=== PATIENT | male | born 1950 | race Hispanic/Latino ===

== ENCOUNTER 2019-07-20 19:45 | Inpatient (IN) | payer OTHER, MEDICARE ==
[2019-07-20] MEDS ORDERED: PANTOPRAZOLE 40 MG INJ IV ONE (20:22)
[2019-07-20 21:36] LABS: Basophils % (Auto) 0.5 % (0.0-1.8); Eosinophils # (Auto) 0.1 K/mm3 (0.0-0.4); Eosinophils % (Auto) 1.6 % (0.0-4.3); Hematocrit 41.7 % (35.5-45.6); Hemoglobin 14.1 gm/dl (11.8-15.2); Lymphocytes # (Auto) 1.1 K/mm3 (1.2-5.4); Lymphocytes % (Auto) 15.8 % (13.4-35.0); Mean Corpuscular HGB Conc 34 % (32-34); Mean Corpuscular Volume 97 fl (84-94); Monocytes # (Auto) 0.5 K/mm3 (0.0-0.8); Monocytes % (Auto) 7.1 % (0.0-7.3); Platelet Count 174 K/mm3 (140-440); Red Cell Distribution Width 13.8 % (13.2-15.2)
--- NOTE | 2019-07-20 21:40 | Emergency Department Report ---
HPI - General Chief Complaint: GI Bleed Time Seen by Provider: 07/20/19 20:20 - HPI HPI: 68-year-old male presents to the emergency department from home with the complaint of rectal bleeding that started around 4:00 this afternoon. By about 7:30 PM the patient had passed about 300 to 400 mL's of blood with some clots and then had a witnessed syncopal episode per family. Patient has a history of bleeding ulcers from about 6 years ago, hypertension, high cholesterol. Patient had a colonoscopy done about 5 days ago with [facility] in [place]. He says that he had 5 different polyps removed at that time. He denies any fever, nausea, vomiting, abdominal pain. He has not taken anything for his symptoms prior to presentation. His primary care physician is Dr. Penny Flores. ED Past Medical Hx - Past Medical History Hx Hypertension: Yes Additional medical history: bleeding ulcers, high choletserol - Surgical History Past Surgical History?: No - Social History Smoking Status: Current Every Day Smoker Substance Use Type: Alcohol - Medications Home Medications: Home Medications Medication Instructions Recorded Confirmed Last Taken Type AtorvaSTATin [Lipitor] 20 mg PO QHS 07/20/19 07/20/19 07/19/19 History Benazepril HCl [Lotensin] 20 mg PO DAILY 07/20/19 07/20/19 07/20/19 History ED Review of Systems ROS: Stated complaint: LOWER GI BLEED Other details as noted in HPI Comment: All other systems reviewed and negative Constitutional: denies: chills, fever Eyes: denies: eye pain, vision change ENT: denies: ear pain, throat pain Respiratory: denies: cough, shortness of breath Cardiovascular: syncope. denies: chest pain, palpitations Gastrointestinal: other (rectal bleeding). denies: nausea, vomiting Genitourinary: denies: dysuria, discharge Musculoskeletal: denies: back pain, arthralgia Skin: denies: rash, lesions Neurological: denies: headache, weakness Physical Exam - Physical Exam Vital Signs: Vital Signs 07/20/19 07/20/19 07/20/19 19:45 20:01 20:57 Temperature 97.6 F Pulse Rate 88 83 82 Respiratory 16 14 16 Rate Blood Pressure 104/73 Blood Pressure 113/76 123/63 [Left] O2 Sat by Pulse 97 100 99 Oximetry Physical Exam: GENERAL: The patient is well-developed well-nourished. HENT: Normocephalic. Atraumatic. Patient has moist mucous membranes. EYES: Extraocular motions are intact. NECK: Supple. Trachea is midline. CHEST/LUNGS: Clear to auscultation. There is no respiratory distress noted. HEART/CARDIOVASCULAR: Regular. There is no tachycardia. There is no murmur. ABDOMEN: Abdomen is soft, nontender. Patient has normal bowel sounds. There is no abdominal distention. SKIN: Skin is warm and dry. NEURO: The patient is awake, alert, and oriented. The patient is cooperative. The patient has no focal neurologic deficits. Normal speech. Cranial nerves II through XII grossly intact. MUSCULOSKELETAL: There is no tenderness or deformity. There is no evidence of acute injury. RECTAL: There is a mild amount of gross blood seen but no active hemorrhage. Nonthrombosed hemorrhoid at the 6 o'clock position. ED Course Vital Signs 07/20/19 07/20/19 07/20/19 19:45 20:01 20:57 Temperature 97.6 F Pulse Rate 88 83 82 Respiratory 16 14 16 Rate Blood Pressure 104/73 Blood Pressure 113/76 123/63 [Left] O2 Sat by Pulse 97 100 99 Oximetry - Consultations Consultation #1: I spoke with the graphic user interface designer on-call, Dr. Crowe, regarding the patient's recent colonoscopy and polypectomy, along with the patient's GI bleeding today. Dr. Crowe has recommended the patient be admitted for an observational stay and they are happy to consult. 07/21/19 00:11 ED Medical Decision Making - Lab Data Result diagrams: 07/20/19 21:00 07/20/19 21:00 - EKG Data -: EKG Interpreted by Me EKG shows normal: sinus rhythm, axis, intervals, QRS complexes, ST-T waves Rate: normal - EKG Data When compared to previous EKG there are: previous EKG unavailable Interpretation: normal EKG - Radiology Data Radiology results: image reviewed interpreted by me: Abdominal x-ray shows nonspecific nonobstructive bowel gas. - Medical Decision Making This patient presents to the emergency department after having a moderate amount of gross rectal bleeding earlier in the day followed by some type of syncope or near syncopal episode. Since being in the emergency department the patient is awake, alert, oriented and in no acute distress. Patient's labs are unremarkable including a hemoglobin of about 14. Rectal examination shows a nonthrombosed hemorrhoid and some mild gross blood without any active hemorrhage. GI was contacted and recommended observational admission and they will consult. Patient accepted for admission by the hospitalist, Dr. Da Silva. - Differential Diagnosis Hemorrhoids, post polypectomy bleed, malignancy, diverticulosis Critical Care Time: No Critical care attestation.: If time is entered above; I have spent that time in minutes in the direct care of this critically ill patient, excluding procedure time. ED Disposition Clinical Impression: Post-polypectomy bleeding GI bleed Qualifiers: GI bleed type/associated pathology: unspecified gastrointestinal hemorrhage type Qualified Code(s): K92.2 - Gastrointestinal hemorrhage, unspecified Syncope Qualifiers: Syncope type: unspecified Qualified Code(s): R55 - Syncope and collapse Disposition: DC-09 OP ADMIT IP TO THIS HOSP Is pt being admited?: Yes Condition: Fair Time of Disposition: 23:40
[2019-07-20 21:44] LABS: INR 1.05 (0.87-1.13)
[2019-07-20 21:53] LABS: Partial Thromboplastin Time 25.7 Sec. (24.2-36.6)
[2019-07-20 21:54] LABS: Alanine Aminotransferase 38 units/L (7-56); Albumin 3.9 g/dL (3.9-5); BUN/Creatinine Ratio 17; Blood Urea Nitrogen 17 mg/dL (9-20); Calcium 8.7 mg/dL (8.4-10.2); Hemolysis Index 7
--- NOTE | 2019-07-20 23:01 | XRay Report ---
ABDOMEN 2 VIEW(S) INDICATION / CLINICAL INFORMATION: abd pain. COMPARISON: None available. FINDINGS: TUBES / LINES: None. BOWEL GAS PATTERN: No significant abnormality. FREE AIR / EXTRALUMINAL GAS: None seen. ADDITIONAL FINDINGS: No significant additional findings. IMPRESSION: 1. No significant abnormality. Signer Name: Jose Steve MD Signed: 07/20/2019 10:57 PM Workstation Name: [id number]
[2019-07-20] MEDS ORDERED: SODIUM CHLORIDE 0.9% 1000 ML 1,000 ML IV ONE (23:41)
[2019-07-21] MEDS ORDERED: ACETAMINOPHEN 325 MG TAB PO PRN (04:41)
[2019-07-21] MEDS ORDERED: HYDROmorphone 1 MG/1 ML INJ IV PRN (04:41)
[2019-07-21] MEDS ORDERED: ONDANSETRON 4 MG/2 ML INJ IV PRN (04:41)
[2019-07-21] MEDS ORDERED: ALBUTEROL 2.5 MG/3 ML NEBU IH PRN (04:41)
[2019-07-21] MEDS ORDERED: MORPHINE 2 MG/1 ML INJ IV PRN (04:41)
[2019-07-21] MEDS ORDERED: D5W/LACTATED RINGERS 1,000 ML IV SCH (05:00)
--- NOTE | 2019-07-21 05:03 | History and Physical Report ---
History of Present Illness Date of admission: 07/20/19 23:40 Chief complaint: Rectal bleeding History of present illness: 68-year-old male with PMH of PUD, HTN with polypectomy 5 days ago presents to the Emergency Department from home with the c/o rectal bleeding that started around 4:00 this afternoon. About three and a half hours later the patient had passed about 300 to 400 mL's of blood with some clots and then had a witnessed syncopal episode per family. Patient has a history of bleeding ulcers from about 6 years ago, hypertension, high cholesterol. Patient had a colonoscopy done about 5 days ago with [facility] in [place]. He says that he had 5 different polyps removed at that time. He admits to having hemmorroids, which tend to bleed somewhat frequently. Today, he also felt dizzy and felt like almost fainting. In the ED, Hgb was WNL. GI, Dr Crowe was notified in the ED and he accepted the consult. He denies any fever, nausea, vomiting,hematuria, hematemesis, epitaxis, abdominal pain. He has not taken anything for his symptoms prior to pre sentation to the ED.. His primary care physician is Dr. Penny Flores. Medications and Allergies Allergies Allergy/AdvReac Type Severity Reaction Status Date / Time No Known Allergies Allergy Verified 07/21/19 04:54 Home Medications Medication Instructions Recorded Confirmed Last Taken Type AtorvaSTATin [Lipitor] 20 mg PO QHS 07/20/19 07/20/19 07/19/19 History Benazepril HCl [Lotensin] 20 mg PO DAILY 07/20/19 07/20/19 07/20/19 History Active Meds: Active Medications Acetaminophen (Tylenol) 650 mg PO Q4H PRN PRN Reason: Pain MILD(1-3)/Fever >100.5/LUND Albuterol (Proventil) 2.5 mg IH Q4HRT PRN PRN Reason: Shortness Of Breath Atorvastatin Calcium (Lipitor) 20 mg PO QHS MARY Hydromorphone HCl (Dilaudid) 0.25 mg IV Q3H PRN PRN Reason: Pain, Moderate (4-6) Sodium Chloride (Nacl 0.9% 1000 Ml) 1,000 mls @ 125 mls/hr IV ONCE ONE Stop: 07/21/19 07:40 Last Admin: 07/21/19 02:08 Dose: 125 mls/hr Documented by: Dextrose/Lactated Ringer's ([email or web address]) 1,000 mls @ 125 mls/hr IV DIRECT MARY Stop: 07/21/19 06:59 Miscellaneous Medication (Benazepril Hcl [Lotensin]) 20 mg PO DAILY [facility] Morphine Sulfate (Morphine) 2 mg IV Q4H PRN PRN Reason: Pain, Moderate (4-6) Ondansetron HCl (Zofran) 4 mg IV Q8H PRN PRN Reason: Nausea And Vomiting Sodium Chloride (Sodium Chloride Flush Syringe 10 Ml) 10 ml IV BID MARY Sodium Chloride (Sodium Chloride Flush Syringe 10 Ml) 10 ml IV PRN PRN PRN Reason: LINE FLUSH Review of Systems All systems: negative Exam - Constitutional Vitals: Temp Pulse Resp BP Pulse Ox 97.8 F 85 18 135/71 97 07/21/19 01:12 07/21/19 01:12 07/21/19 01:12 07/21/19 01:12 07/21/19 01:12 General appearance: Present: no acute distress, well-nourished - EENT Eyes: Present: PERRL ENT: hearing intact, clear oral mucosa - Neck Neck: Present: supple, normal ROM - Respiratory Respiratory effort: normal Respiratory: bilateral: CTA - Cardiovascular Heart Sounds: Present: S1 & S2. Absent: rub, click - Extremities Extremities: pulses symmetrical, No edema Peripheral Pulses: within normal limits - Abdominal General gastrointestinal: Present: soft, non-tender, non-distended, normal bowel sounds Male genitourinary: Present: normal - Rectal Rectal Exam: hemorrhoids, stool brown - Integumentary Integumentary: Present: clear, warm, dry - Musculoskeletal Musculoskeletal: gait normal, strength equal bilaterally - Psychiatric Psychiatric: appropriate mood/affect, intact judgment & insight - Neurologic Neurologic: CNII-XII intact, moves all extremities Results - Labs CBC & Chem 7: 07/20/19 21:00 07/20/19 21:00 Labs: Laboratory Last Values WBC 6.9 K/mm3 (4.5-11.0) 07/20/19 21:00 RBC 4.30 M/mm3 (3.65-5.03) 07/20/19 21:00 Hgb 14.1 gm/dl (11.8-15.2) 07/20/19 21:00 Hct 41.7 % (35.5-45.6) 07/20/19 21:00 MCV 97 fl (84-94) H 07/20/19 21:00 MCH 33 pg (28-32) H 07/20/19 21:00 MCHC 34 % (32-34) 07/20/19 21:00 RDW 13.8 % (13.2-15.2) 07/20/19 21:00 Plt Count 174 K/mm3 (140-440) 07/20/19 21:00 Lymph % (Auto) 15.8 % (13.4-35.0) 07/20/19 21:00 [place] % (Auto) 7.1 % (0.0-7.3) 07/20/19 21:00 Eos % (Auto) 1.6 % (0.0-4.3) 07/20/19 21:00 Baso % (Auto) 0.5 % (0.0-1.8) 07/20/19 21:00 Lymph # 1.1 K/mm3 (1.2-5.4) L 07/20/19 21:00 [place] # 0.5 K/mm3 (0.0-0.8) 07/20/19 21:00 Eos # 0.1 K/mm3 (0.0-0.4) 07/20/19 21:00 Baso # 0.0 K/mm3 (0.0-0.1) 07/20/19 21:00 Seg Neutrophils % 75.0 % (40.0-70.0) H 07/20/19 21:00 Seg Neutrophils # 5.1 K/mm3 (1.8-7.7) 07/20/19 21:00 PT 13.8 Sec. (12.2-14.9) 07/20/19 21:00 INR 1.05 (0.87-1.13) 07/20/19 21:00 APTT 25.7 Sec. (24.2-36.6) 07/20/19 21:00 Sodium 140 mmol/L (137-145) 07/20/19 21:00 Potassium 3.8 mmol/L (3.6-5.0) 07/20/19 21:00 Chloride 103.9 mmol/L (98-107) 07/20/19 21:00 Carbon Dioxide 20 mmol/L (22-30) L 07/20/19 21:00 Anion Gap 20 mmol/L 07/20/19 21:00 BUN 17 mg/dL (9-20) 07/20/19 21:00 Creatinine 1.0 mg/dL (0.8-1.5) 07/20/19 21:00 Estimated GFR > 60 ml/min 07/20/19 21:00 BUN/Creatinine Ratio 17 % 07/20/19 21:00 Glucose 124 mg/dL (75-100) H 07/20/19 21:00 Calcium 8.7 mg/dL (8.4-10.2) 07/20/19 21:00 Total Bilirubin 0.70 mg/dL (0.1-1.2) 07/20/19 21:00 AST 36 units/L (5-40) 07/20/19 21:00 ALT 38 units/L (7-56) 07/20/19 21:00 Alkaline Phosphatase 55 units/L (35-129) 07/20/19 21:00 Troponin T < 0.010 ng/mL (0.00-0.029) 07/20/19 21:00 Total Protein 6.2 g/dL (6.3-8.2) L 07/20/19 21:00 Albumin 3.9 g/dL (3.9-5) 07/20/19 21:00 Albumin/Globulin Ratio 1.7 % 07/20/19 21:00 TSH 1.070 mlU/mL (0.270-4.200) 07/20/19 23:01 Blood Type A POSITIVE 07/20/19 21:10 Antibody Screen Negative 07/20/19 21:10 Assessment and Plan Assessment and plan: Lower GI bleeding - post polypectomy bleeding - Possible with concomitant hemmoroidal bleeding - Coags are WNL. Pt is not on any blood thinners - Keep NPO for possible Anoscopy or Colonoscopy by GI - D5 LR IVF MEtabolic Acidosis - Due to GI fluid loss - LR IVF Tobacco Dependence - Chronic use - pt counseled on cessation. Nicotine patch if needed. HTN essential - continue meds Full code. SCD.
[2019-07-21 05:24] LABS: Basophils % (Auto) 0.4 % (0.0-1.8); Eosinophils # (Auto) 0.1 K/mm3 (0.0-0.4); Eosinophils % (Auto) 1.7 % (0.0-4.3); Hematocrit 38.4 % (35.5-45.6); Hemoglobin 12.8 gm/dl (11.8-15.2); Lymphocytes # (Auto) 1.4 K/mm3 (1.2-5.4); Lymphocytes % (Auto) 33.2 % (13.4-35.0); Mean Corpuscular HGB Conc 33 % (32-34); Mean Corpuscular Volume 96 fl (84-94); Monocytes # (Auto) 0.4 K/mm3 (0.0-0.8); Platelet Count 159 K/mm3 (140-440); Red Blood Count 3.99 M/mm3 (3.65-5.03); Red Cell Distribution Width 13.6 % (13.2-15.2)
[2019-07-21 05:45] LABS: Alanine Aminotransferase 32 units/L (7-56); Albumin 3.6 g/dL (3.9-5); BUN/Creatinine Ratio 18; Bilirubin,Direct 0.3 mg/dL (0-0.2); Blood Urea Nitrogen 16 mg/dL (9-20); Calcium 8.6 mg/dL (8.4-10.2); Hemolysis Index 2
--- NOTE | 2019-07-21 07:28 | Progress Note ---
Assessment and Plan Assessment and plan: --Rectal bleeding: post polypectomy bleeding[polypectomy 5-6 days ago] Hemodynamically stable at this point Monitor H&H and transfuse as needed Follow GI evaluation and recommendations Possible colonoscopy, n.p.o. status --Hypertension; moderate control Continue current antihypertensives and PRN medications --Mild metabolic Acidosis; present on admission Continue IV fluids, resolved --Ongoing tobacco use ; Smoking cessation advised, nicotine patch as needed --DVT prophylaxis SCD No pharmacologic anticoagulation in view of GI bleeding Follow GI evaluation and recommendation Plan of care reviewed with the patient and his nurse History Interval history: Patient seen and examined this morning at bedside Admitted with rectal bleeding Patient is slightly anxious Alert awake oriented Vital signs reviewed Hospitalist Physical - Constitutional Vitals: Temp Pulse Resp BP Pulse Ox 97.8 F 85 20 135/71 97 07/21/19 01:12 07/21/19 01:12 07/21/19 07:18 07/21/19 01:12 07/21/19 01:12 General appearance: Present: mild distress, well-nourished - EENT Eyes: Present: PERRL, EOM intact - Neck Neck: Present: supple, normal ROM - Respiratory Respiratory effort: normal Respiratory: bilateral: diminished, negative: rales, rhonchi, wheezing - Cardiovascular Rhythm: regular Heart Sounds: Present: S1 & S2 - Extremities Extremities: no ischemia, No edema - Abdominal General gastrointestinal: soft, non-tender, non-distended, normal bowel sounds - Integumentary Integumentary: Present: clear, warm - Psychiatric Psychiatric: appropriate mood/affect, cooperative - Neurologic Neurologic: CNII-XII intact, moves all extremities Results - Labs CBC & Chem 7: 07/21/19 04:54 07/21/19 04:54 Labs: Laboratory Last Values WBC 4.1 K/mm3 (4.5-11.0) L 07/21/19 04:54 RBC 3.99 M/mm3 (3.65-5.03) 07/21/19 04:54 Hgb 12.8 gm/dl (11.8-15.2) 07/21/19 04:54 Hct 38.4 % (35.5-45.6) 07/21/19 04:54 MCV 96 fl (84-94) H 07/21/19 04:54 MCH 32 pg (28-32) 07/21/19 04:54 MCHC 33 % (32-34) 07/21/19 04:54 RDW 13.6 % (13.2-15.2) 07/21/19 04:54 Plt Count 159 K/mm3 (140-440) 07/21/19 04:54 Lymph % (Auto) 33.2 % (13.4-35.0) 07/21/19 04:54 Real % (Auto) 9.0 % (0.0-7.3) H 07/21/19 04:54 Eos % (Auto) 1.7 % (0.0-4.3) 07/21/19 04:54 Baso % (Auto) 0.4 % (0.0-1.8) 07/21/19 04:54 Lymph # 1.4 K/mm3 (1.2-5.4) 07/21/19 04:54 Real # 0.4 K/mm3 (0.0-0.8) 07/21/19 04:54 Eos # 0.1 K/mm3 (0.0-0.4) 07/21/19 04:54 Baso # 0.0 K/mm3 (0.0-0.1) 07/21/19 04:54 Seg Neutrophils % 55.7 % (40.0-70.0) 07/21/19 04:54 Seg Neutrophils # 2.3 K/mm3 (1.8-7.7) 07/21/19 04:54 PT 13.8 Sec. (12.2-14.9) 07/20/19 21:00 INR 1.05 (0.87-1.13) 07/20/19 21:00 APTT 25.7 Sec. (24.2-36.6) 07/20/19 21:00 Sodium 138 mmol/L (137-145) 07/21/19 04:54 Potassium 3.9 mmol/L (3.6-5.0) 07/21/19 04:54 Chloride 102.9 mmol/L (98-107) 07/21/19 04:54 Carbon Dioxide 22 mmol/L (22-30) 07/21/19 04:54 Anion Gap 17 mmol/L 07/21/19 04:54 BUN 16 mg/dL (9-20) 07/21/19 04:54 Creatinine 0.9 mg/dL (0.8-1.5) 07/21/19 04:54 Estimated GFR > 60 ml/min 07/21/19 04:54 BUN/Creatinine Ratio 18 % 07/21/19 04:54 Glucose 106 mg/dL (75-100) H 07/21/19 04:54 Calcium 8.6 mg/dL (8.4-10.2) 07/21/19 04:54 Total Bilirubin 1.00 mg/dL (0.1-1.2) 07/21/19 04:54 Direct Bilirubin 0.3 mg/dL (0-0.2) H 07/21/19 04:54 Indirect Bilirubin 0.7 mg/dL 07/21/19 04:54 AST 28 units/L (5-40) 07/21/19 04:54 ALT 32 units/L (7-56) 07/21/19 04:54 Alkaline Phosphatase 51 units/L (35-129) 07/21/19 04:54 Troponin T < 0.010 ng/mL (0.00-0.029) 07/20/19 21:00 Total Protein 5.8 g/dL (6.3-8.2) L 07/21/19 04:54 Albumin 3.6 g/dL (3.9-5) L 07/21/19 04:54 Albumin/Globulin Ratio 1.6 % 07/21/19 04:54 TSH 1.070 mlU/mL (0.270-4.200) 07/20/19 23:01 Blood Type A POSITIVE 07/20/19 21:10 Antibody Screen Negative 07/20/19 21:10 Active Medications - Current Medications Current Medications: Generic Name Dose Route Start Last Admin Trade Name Freq PRN Reason Stop Dose Admin Acetaminophen 650 mg 07/21/19 04:41 Tylenol PO Q4H PRN Pain MILD(1-3)/Fever >100.5/LUND Albuterol 2.5 mg 07/21/19 04:41 Proventil IH Q4HRT PRN Shortness Of Breath Atorvastatin Calcium 20 mg 07/21/19 22:00 Lipitor PO QHS MARY Hydromorphone HCl 0.25 mg 07/21/19 04:41 Dilaudid IV Q3H PRN Pain, Moderate (4-6) Sodium Chloride 1,000 mls @ 125 mls/hr 07/20/19 23:41 07/21/19 02:08 Nacl 0.9% 1000 Ml IV 07/21/19 07:40 125 mls/hr ONCE ONE Administration Lisinopril 20 mg 07/21/19 10:00 Zestril PO QDAY MARY Morphine Sulfate 2 mg 07/21/19 04:41 Morphine IV Q4H PRN Pain, Moderate (4-6) Ondansetron HCl 4 mg 07/21/19 04:41 Zofran IV Q8H PRN Nausea And Vomiting Sodium Chloride 10 ml 07/21/19 10:00 Sodium Chloride Flush Syringe 10 Ml IV BID MARY Sodium Chloride 10 ml 07/21/19 04:41 Sodium Chloride Flush Syringe 10 Ml IV PRN PRN LINE FLUSH
[2019-07-21] MEDS ORDERED: BENAZEPRIL HCL 20 MG PO SCH (10:00)
--- NOTE | 2019-07-21 10:37 | Gastroenterology Consultation ---
History of Present Illness - Reason for Consult Consult date: 07/21/19 [facility] Requesting physician: YESENIA CADENA - History of Present Illness Patient is a 68 y/o male with PMH of PUD, HTN, and tobacco dependence who presented to ED yesterday for evaluation of rectal bleeding to which GI has been consulted. Patient is previously known to our service. He underwent a colon oscopy last week on 07/15/[address] Alan for colon cancer screening with polyps removed. This morning patient was resting in bed with c/o continued weakness but no acute distress or active signs of bleeding overnight or this am. Denies fever, CP, SOB, wt loss, abd pain, N/V, hematemesis, melena, diarrhea, or constipation. Not on any blood thinning medications at home. H/H remains WNL. Past History Past Medical History: other (see HPI) Past Surgical History: No surgical history, Other (colonoscopy 07/15/19) Social history: smoking, other (alcohol) Medications and Allergies Allergies Allergy/AdvReac Type Severity Reaction Status Date / Time No Known Allergies Allergy Verified 07/21/19 04:54 Home Medications Medication Instructions Recorded Confirmed Last Taken Type AtorvaSTATin [Lipitor] 20 mg PO QHS 07/20/19 07/20/19 07/19/19 History Benazepril HCl [Lotensin] 20 mg PO DAILY 07/20/19 07/20/19 07/20/19 History Active Meds: Active Medications Acetaminophen (Tylenol) 650 mg PO Q4H PRN PRN Reason: Pain MILD(1-3)/Fever >100.5/LUND Albuterol (Proventil) 2.5 mg IH Q4HRT PRN PRN Reason: Shortness Of Breath Atorvastatin Calcium (Lipitor) 20 mg PO QHS MARY Hydromorphone HCl (Dilaudid) 0.25 mg IV Q3H PRN PRN Reason: Pain, Moderate (4-6) Lisinopril (Zestril) 20 mg PO QDAY MARY Morphine Sulfate (Morphine) 2 mg IV Q4H PRN PRN Reason: Pain, Moderate (4-6) Ondansetron HCl (Zofran) 4 mg IV Q8H PRN PRN Reason: Nausea And Vomiting Sodium Chloride (Sodium Chloride Flush Syringe 10 Ml) 10 ml IV BID MARY Sodium Chloride (Sodium Chloride Flush Syringe 10 Ml) 10 ml IV PRN PRN PRN Reason: LINE FLUSH medications reviewed/updated as required Review of Systems - Review of Systems All systems: negative Gastrointestinal: BRBPR, no abdominal pain, no nausea, no vomiting, no hematemesis, no melena Exam - Constitutional Vital Signs: Temp Pulse Resp BP Pulse Ox 98.8 F 82 18 119/56 93 07/21/19 08:35 07/21/19 08:35 07/21/19 08:35 07/21/19 08:35 07/21/19 08:35 General appearance: no acute distress - EENT Eyes: PERRL, EOM intact ENT: hearing intact - Respiratory Respiratory effort: normal Respiratory: bilateral: CTA - Cardiovascular Rhythm: regular - Gastrointestinal General gastrointestinal: Present: soft, non-tender, non-distended, normal bowel sounds - Integumentary Integumentary: Present: warm, dry - Neurologic Neurological: alert and oriented x3 - Labs CBC & Chem 7: 07/21/19 04:54 07/21/19 04:54 Lab Results: Laboratory Results - last 24 hr 07/20/19 07/20/19 07/20/19 21:00 21:00 21:00 WBC 6.9 RBC 4.30 Hgb 14.1 Hct 41.7 MCV 97 H MCH 33 H MCHC 34 RDW 13.8 Plt Count 174 Lymph % (Auto) 15.8 [place] % (Auto) 7.1 Eos % (Auto) 1.6 Baso % (Auto) 0.5 Lymph # 1.1 L [place] # 0.5 Eos # 0.1 Baso # 0.0 Seg Neutrophils % 75.0 H Seg Neutrophils # 5.1 PT 13.8 INR 1.05 APTT 25.7 Sodium 140 Potassium 3.8 Chloride 103.9 Carbon Dioxide 20 L Anion Gap 20 BUN 17 Creatinine 1.0 Estimated GFR > 60 BUN/Creatinine Ratio 17 Glucose 124 H Calcium 8.7 Total Bilirubin 0.70 Direct Bilirubin Indirect Bilirubin AST 36 ALT 38 Alkaline Phosphatase 55 Troponin T < 0.010 Total Protein 6.2 L Albumin 3.9 Albumin/Globulin Ratio 1.7 TSH Blood Type Antibody Screen 07/20/19 07/20/19 07/21/19 21:10 23:01 04:54 WBC 4.1 L RBC 3.99 Hgb 12.8 Hct 38.4 MCV 96 H MCH 32 MCHC 33 RDW 13.6 Plt Count 159 Lymph % (Auto) 33.2 [place] % (Auto) 9.0 H Eos % (Auto) 1.7 Baso % (Auto) 0.4 Lymph # 1.4 [place] # 0.4 Eos # 0.1 Baso # 0.0 Seg Neutrophils % 55.7 Seg Neutrophils # 2.3 PT INR APTT Sodium Potassium Chloride Carbon Dioxide Anion Gap BUN Creatinine Estimated GFR BUN/Creatinine Ratio Glucose Calcium Total Bilirubin Direct Bilirubin Indirect Bilirubin AST ALT Alkaline Phosphatase Troponin T Total Protein Albumin Albumin/Globulin Ratio TSH 1.070 Blood Type A POSITIVE Antibody Screen Negative 07/21/19 04:54 WBC RBC Hgb Hct MCV MCH MCHC RDW Plt Count Lymph % (Auto) [place] % (Auto) Eos % (Auto) Baso % (Auto) Lymph # [place] # Eos # Baso # Seg Neutrophils % Seg Neutrophils # PT INR APTT Sodium 138 Potassium 3.9 Chloride 102.9 Carbon Dioxide 22 Anion Gap 17 BUN 16 Creatinine 0.9 Estimated GFR > 60 BUN/Creatinine Ratio 18 Glucose 106 H Calcium 8.6 Total Bilirubin 1.00 Direct Bilirubin 0.3 H Indirect Bilirubin 0.7 AST 28 ALT 32 Alkaline Phosphatase 51 Troponin T Total Protein 5.8 L Albumin 3.6 L Albumin/Globulin Ratio 1.6 TSH Blood Type Antibody Screen Assessment and Plan 1.LGIB -INR and plt WNL -H/H WNL-stable -continue to monitor H/H and transfuse as needed -no active signs of bleeding overnight or this am; currently HD stable -colonoscopy last week on 07/15/19 that revealed colon polyps (cecum, proximal ascending, splenic flexure, rectum) and mild diverticulosis in sigmoid colon -etiology-possibly post polypectomy bleed vs hemorrhoid vs other -will schedule for repeat colonoscopy tomorrow for further evaluation -okay for clears today then NPO after MN -hold blood thinning medications -daily PPI -continue supportive care -will follow
[2019-07-21] MEDS ORDERED: POLYETHYLENE GLYCOL/ELECT SOLN 4000 ML PO SCH (10:38)
[2019-07-21] MEDS: LISINOPRIL 20 MG TAB PO SCH (10:57)
[2019-07-22 04:20] LABS: Hematocrit 35.5 % (35.5-45.6); Hemoglobin 12.1 gm/dl (11.8-15.2)
[2019-07-22] MEDS ORDERED: WATER FOR IRRIG STERILE 250 ML BOTTLE IR ONE (07:04)
[2019-07-22] MEDS ORDERED: WATER FOR IRRIG STERILE 1,000 ML BOTTLE ONE (07:05)
--- NOTE | 2019-07-22 07:58 | Anesthesia Consultation ---
Anesthesia Consult and Med Hx Date of service: 07/22/19 - Airway Anesthetic Teeth Evaluation: Dentures ROM Head & Neck: Inadequate Mental/Hyoid Distance: Adequate Mallampati Class: Class II Intubation Access Assessment: Probably Good - Pre-Operative Health Status ASA Pre-Surgery Classification: ASA3 Proposed Anesthetic Plan: MAC - Pulmonary Hx Smoking: Yes (1 PPD) Hx Asthma: No Hx Respiratory Symptoms: No SOB: No COPD: No Home Oxygen Therapy: No Hx Pneumonia: No Hx Sleep Apnea: No - Cardiovascular System Hx Hypertension: Yes Hx Coronary Artery Disease: No Hx Heart Attack/AMI: No Hx Angina: No Hx Percutaneous Transluminal Coronary Angioplasty (PTCA): No Hx Cardia Arrhythmia: No Hx Pacemaker: No Hx Internal Defibrillator: No Hx Valvular Heart Disease: No Hx Heart Murmur: No Hx Peripheral Vascular Disease: Yes (Blood clot in leg right resolved) - Central Nervous System Hx Neuromuscular Disorder: No Hx Seizures: No CVA: No Hx Back Pain: Yes (on BC powder ) Hx Psychiatric Problems: No - Gastrointestinal Hx Ulcer: Yes Hx Gastroesophageal Reflux Disease: No - Endocrine Hx Renal Disease: No Hx End Stage Renal Disease: No Hx Cirrhosis: No Hx Liver Disease: No Hx Insulin Dependent Diabetes: No Hx Non-Insulin Dependent Diabetes: No Hx Thyroid Disease: No Hx Hypothyroidism: No Hx Hyperthyroidism: No - Hematic Hx Anemia: No Hx Sickle Cell Disease: No - Other Systems Hx Alcohol Use: Yes (2-3 drinks a week) Hx Substance Use: No Hx Cancer: No Hx Obesity: No
--- NOTE | 2019-07-22 07:59 | Anesthesia Day of Surgery ---
Anesthesia Day of Surgery - Day of Surgery Patient Examined: Yes Patient H&P Reviewed: Yes Patient is NPO: Yes Beta Blockers: No
[2019-07-22] MEDS ORDERED: PANTOPRAZOLE 40 MG TAB PO SCH (10:00)
[2019-07-22] MEDS: LISINOPRIL 20 MG TAB PO SCH (10:25)
[2019-07-22] MEDS ORDERED: SODIUM CHLORIDE 0.9% 1000 ML 1,000 ML ONE (11:49)
[2019-07-22] MEDS ORDERED: SODIUM CHLORIDE 0.9% 1000 ML 1,000 ML IV SCH (12:30)
[2019-07-22] MEDS ORDERED: propofoL 200 MG/20 ML VIAL IV ONE ×2 (12:35)
--- NOTE | 2019-07-22 12:58 | Operative Report ---
Operative Report Operative Report: Operative Report Operative Report: Colonoscopy: Procedure: Colonoscopy with polypectomy Endoscopist: Emiliano Graham MD Pre-operative Diagnosis/Indications: Rectal bleeding Post-operative Diagnosis: colon post polypectomy site ulcers x 4, transverse colon polyp, sigmoid diverticulosis, internal hemorrhoids. Sedation: MAC Procedure Details: Indications, risks, and benefits were explained and consent was obtained. Pt was placed in the left lateral decubitus position and sedated. Video colonoscope was inserted thru the anus after digital exam, and advanced t o the cecum without difficulty. Scope was then gradually withdrawn with close inspection of the mucosa. Prep was fair. Findings: 1. There were small clean based ulcer without any high risk bleeding stigmata at the post polypectomy sites of prior colonoscopy, in cecum, ascending colon, hepatic flexure, and rectum (total 4 ulcers). 2. There was a 6 mm sessile polyp in the transverse colon removed with cold snare polypectomy and retrieved. 3. Sigmoid diverticulosis. 4. Small nonbleeding internal and external hemorrhoids. Complications: none. patient tolerated the procedure well. Impression: 1. There were small clean based ulcer without any high risk bleeding stigmata at the post polypectomy sites of prior colonoscopy, in cecum, ascending colon, hepatic flexure, and rectum (total 4 ulcers). It is presumed that patient may had bleeding from these sites but no signs of active bleeding at this time. No blood seen throughout the colon or in the examined part of terminal ileum. 2. There was a 6 mm sessile polyp in the transverse colon removed with cold snare polypectomy and retrieved. 3. Sigmoid diverticulosis. 4. Small nonbleeding internal and external hemorrhoids. 5. Prep quality was fair. Recommendations: 1. Resume diet. 2. Monitor H/H. If H/H stable and no signs of recurrent bleeding, ok for dischar ge per GI standpoint and follow up in GI clinic. 3. Recommend repeat colonoscopy for surveillance based on pathology results. Emiliano Byrne (Caprice Graham MD [facility]
[2019-07-22 13:19] VITALS: BP 124/71
--- NOTE | 2019-07-22 13:49 | Post Anesthesia Evaluation ---
- Post Anesthesia Evaluation Patient Participated: Yes Airway Patent: Yes Stable Respiratory Function: Yes Nausea/Vomiting: No Temp > 96.8F: Yes Pain Manageable: Yes Adequeate Hydration: Yes Anesthesia Complications: No
--- NOTE | 2019-07-22 15:09 | Discharge Summary ---
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 Hospitalization Condition: Fair Disposition: DC-01 TO HOME OR SELFCARE Time spent for discharge: 32 min Core Measure Documentation - Palliative Care Palliative Care/ Comfort Measures: Not Applicable - Core Measures Any of the following diagnoses?: none Exam - Constitutional Vitals: Temp Pulse Resp BP Pulse Ox 98.8 F 79 20 124/71 95 07/22/19 12:51 07/22/19 13:18 07/22/19 13:18 07/22/19 13:18 07/22/19 13:18 General appearance: Present: no acute distress, well-nourished - EENT Eyes: Present: PERRL, EOM intact - Neck Neck: Present: supple, normal ROM - Respiratory Respiratory effort: normal Respiratory: bilateral: diminished, negative: rales, rhonchi, wheezing - Cardiovascular Rhythm: regular Heart Sounds: Present: S1 & S2 - Extremities Extremities: no ischemia, No edema - Abdominal General gastrointestinal: Present: soft, non-tender, non-distended, normal bowel sounds - Integumentary Integumentary: Present: clear, warm - Musculoskeletal Musculoskeletal: strength equal bilaterally - Psychiatric Psychiatric: appropriate mood/affect, cooperative - Neurologic Neurologic: CNII-XII intact, moves all extremities Plan Activity: advance as tolerated Diet: regular Special Instructions: smoking cessation Additional Instructions: If you notice any new episodes of rectal bleeding contact MD or go to emergency room. Follow with GI per schedule. Smoking cessation, nicotine patch if needed Follow up with: JILL BECERRA MD [Primary Care Provider] - 3-5 Days MIN,GRABIEL DOTSON MD [Staff Physician] - 7 Days Forms: Accompanied Note Prescriptions: Pantoprazole [Protonix TAB] 40 mg PO QDAY #30 tablet
== END 2019-07-22 16:35 | disposition home or self-care (01) | DRG 919 ==
LOC: ED 19:45 → 2B-ACE 23:40 → OBSVTOIN 07-21 17:35
PROVIDERS: ADMIT Hospitalist; ATTEND Internal Medicine
PROC: 0DBL8ZZ Excision of Transverse Colon, Via Natural or Artificial Opening Endoscopic (ICD-10-PCS; principal; 2019-07-22)
DX: K91.840 Postprocedural hemorrhage of a digestive system organ or structure following a digestive system procedure (principal); K57.31 Diverticulosis of large intestine without perforation or abscess with bleeding; E87.2 Acidosis; K63.3 Ulcer of intestine; R55 Syncope and collapse; F17.210 Nicotine dependence, cigarettes, uncomplicated; I10 Essential (primary) hypertension; E78.00 Pure hypercholesterolemia, unspecified; Y83.8 Other surgical procedures as the cause of abnormal reaction of the patient, or of later complication, without mention of misadventure at the time of the procedure; K64.8 Other hemorrhoids; K64.4 Residual hemorrhoidal skin tags; Z71.6 Tobacco abuse counseling; Y92.89 Other specified places as the place of occurrence of the external cause; Z87.11 Personal history of peptic ulcer disease
CPT/HCPCS: 36415; 74019; 80048; 80053; 80076; 84443; 84484; 85014; 85018; 85025; 85610; 85730; 86850; 86900; 86901; 88305; 93005; 93010; 99406; G0378; A9270-GY; C9113; J2704; J7030